=== PATIENT | male | born 1980 | race Caucasian/White ===

== ENCOUNTER 2023-10-05 22:19 | Emergency (ER) | payer BC ==
[2023-10-05 22:51] LABS: BASOPHILS ABSOLUTE AUTO 0.02 K/uL (0.00-0.20); BASOPHILS PERCENT AUTO 0.3 % (0.0-2.0); EOSINOPHILS ABSOLUTE AUTO 0.07 K/uL (0.00-0.50); HEMATOCRIT 42.1 % (39.0-49.0); HEMOGLOBIN 14.8 g/dL (13.1-16.8); LYMPHOCYTES ABSOLUTE AUTO 1.67 K/uL (0.50-3.50); LYMPHOCYTES PERCENT AUTO 23.5 % (10.0-50.0); MEAN CORPUSCULAR HEMOGLOBIN 34.3 pg (28.2-33.3); MEAN CORPUSCULAR HGB CONC 35.2 g/dL (31.7-36.0); MEAN CORPUSCULAR VOLUME 97.7 fL (84.0-98.0); MONOCYTES ABSOLUTE AUTO 0.68 K/uL (0.00-1.00); MONOCYTES PERCENT AUTO 9.6 % (2.0-14.0); NEUTROPHILS ABSOLUTE AUTO 4.67 K/uL (1.40-7.00); NEUTROPHILS PERCENT AUTO 65.6 % (45.0-80.0); PLATELET COUNT,PLT 216 K/uL (150-350); RED BLOOD CELL COUNT 4.31 M/uL (4.33-5.41); RED CELL DISTRIBUTION WIDTH 12.2 % (11.2-14.1); WHITE BLOOD CELL COUNT,WBC 7.1 K/uL (4.0-10.2)
[2023-10-05] MEDS: cloNIDine 0.1 MG Tab PO ONE (23:08)
[2023-10-05 23:22] LABS: ALANINE AMINOTRANSFERASE,ALT 51 U/L (12-78); ALBUMIN 4.2 g/dL (3.4-5.0); ALKALINE PHOSPHATASE 67 IU/L (46-116); ANION GAP 6.2 meq/L (7-15); ASPARTATE AMNIOTRANSFERASE,AST 28 U/L (15-37); BILIRUBIN TOTAL 0.9 mg/dL (0.2-1.0); BLOOD UREA NITROGEN,BUN 23 mg/dL (7-18); CALCIUM 9.9 mg/dL (8.5-10.1); CARBON DIOXIDE,CO2 28.8 mmol/L (21.0-32.0); CHLORIDE,CL 104 mmol/L (98-107); CREATININE 0.97 mg/dL (0.51-1.17); GLUCOSE RANDOM 109 mg/dL (70-99); POTASSIUM,K 3.9 mmol/L (3.5-5.1); SODIUM,NA 139 mmol/L (136-145)
[2023-10-05 23:25] LABS: ESTIMATED GFR 101 mL/min (>=60); PROTHROMBIN TIME 10.3 SEC (9.0-11.1)
== END 2023-10-05 23:40 | disposition home or self-care (01) ==
LOC: LL.ED 22:19
DX: R00.2 Palpitations (principal)
CPT/HCPCS: 36415; 71045; 80053; 84484; 85025; 85610; 93005; 93010; 99284; 99285; A9270-GY

== ENCOUNTER 2023-12-10 13:25 | Emergency (ER) | payer BC ==
[2023-12-10] MEDS ORDERED: Sodium Chloride 0.9% 10 ML Syringe FLUSH PRN (13:31)
[2023-12-10 13:37] LABS: BASOPHILS ABSOLUTE AUTO 0.02 K/uL (0.00-0.20); BASOPHILS PERCENT AUTO 0.3 % (0.0-2.0); EOSINOPHILS ABSOLUTE AUTO 0.08 K/uL (0.00-0.50); EOSINOPHILS PERCENT AUTO 1.2 % (0.0-5.0); HEMATOCRIT 42.4 % (39.0-49.0); HEMOGLOBIN 14.7 g/dL (13.1-16.8); LYMPHOCYTES ABSOLUTE AUTO 1.35 K/uL (0.50-3.50); LYMPHOCYTES PERCENT AUTO 20.3 % (10.0-50.0); MEAN CORPUSCULAR HEMOGLOBIN 34.3 pg (28.2-33.3); MEAN CORPUSCULAR HGB CONC 34.7 g/dL (31.7-36.0); MEAN CORPUSCULAR VOLUME 98.8 fL (84.0-98.0); MONOCYTES ABSOLUTE AUTO 0.59 K/uL (0.00-1.00); MONOCYTES PERCENT AUTO 8.9 % (2.0-14.0); NEUTROPHILS PERCENT AUTO 69.3 % (45.0-80.0); PLATELET COUNT,PLT 240 K/uL (150-350); RED BLOOD CELL COUNT 4.29 M/uL (4.33-5.41); RED CELL DISTRIBUTION WIDTH 12.5 % (11.2-14.1); WHITE BLOOD CELL COUNT,WBC 6.6 K/uL (4.0-10.2)
[2023-12-10 13:47] LABS: ALANINE AMINOTRANSFERASE,ALT 50 U/L (12-78); ALBUMIN 3.6 g/dL (3.4-5.0); ALKALINE PHOSPHATASE 76 IU/L (46-116); ANION GAP 6.8 meq/L (7-15); ASPARTATE AMNIOTRANSFERASE,AST 23 U/L (15-37); BILIRUBIN TOTAL 0.5 mg/dL (0.2-1.0); BLOOD UREA NITROGEN,BUN 15 mg/dL (7-18); CALCIUM 8.5 mg/dL (8.5-10.1); CARBON DIOXIDE,CO2 30.2 mmol/L (21.0-32.0); CHLORIDE,CL 104 mmol/L (98-107); CREATININE 0.99 mg/dL (0.51-1.17); ESTIMATED GFR 98 mL/min (>=60); GLUCOSE RANDOM 108 mg/dL (70-99); MAGNESIUM 1.9 mg/dL (1.8-2.4); POTASSIUM,K 3.9 mmol/L (3.5-5.1); PROTEIN TOTAL,TP 7.4 g/dL (6.4-8.2); SODIUM,NA 141 mmol/L (136-145)
[2023-12-10 13:57] LABS: PROTHROMBIN TIME 10.4 SEC (9.0-11.1)
== END 2023-12-10 15:05 | disposition home or self-care (01) ==
LOC: LL.ED 13:25
DX: R07.89 Other chest pain (principal); K21.9 Gastro-esophageal reflux disease without esophagitis; F41.9 Anxiety disorder, unspecified; I10 Essential (primary) hypertension; Z79.899 Other long term (current) drug therapy
CPT/HCPCS: 36415; 71046; 80053; 83735; 84484; 85025; 85610; 93005; 93010; 99284; 99285

== ENCOUNTER 2024-05-04 14:05 | Emergency (ER) | payer BC ==
[2024-05-04] MEDS ORDERED: Sodium Chloride 0.9% 10 ML Syringe FLUSH PRN (14:18)
[2024-05-04] MEDS: Lactated Ringers 1,000 ML IV ONE (14:40)
[2024-05-04 14:41] LABS: BASOPHILS ABSOLUTE AUTO 0.02 K/uL (0.00-0.20); BASOPHILS PERCENT AUTO 0.2 % (0.0-2.0); EOSINOPHILS ABSOLUTE AUTO 0.04 K/uL (0.00-0.50); EOSINOPHILS PERCENT AUTO 0.5 % (0.0-5.0); HEMATOCRIT 39.8 % (39.0-49.0); LYMPHOCYTES ABSOLUTE AUTO 1.04 K/uL (0.50-3.50); LYMPHOCYTES PERCENT AUTO 12.9 % (10.0-50.0); MEAN CORPUSCULAR HEMOGLOBIN 33.8 pg (28.2-33.3); MEAN CORPUSCULAR HGB CONC 35.2 g/dL (31.7-36.0); MEAN CORPUSCULAR VOLUME 96.1 fL (84.0-98.0); MONOCYTES ABSOLUTE AUTO 0.54 K/uL (0.00-1.00); MONOCYTES PERCENT AUTO 6.7 % (2.0-14.0); NEUTROPHILS ABSOLUTE AUTO 6.43 K/uL (1.40-7.00); NEUTROPHILS PERCENT AUTO 79.7 % (45.0-80.0); PLATELET COUNT,PLT 223 K/uL (150-350); RED BLOOD CELL COUNT 4.14 M/uL (4.33-5.41); RED CELL DISTRIBUTION WIDTH 12.5 % (11.2-14.1); WHITE BLOOD CELL COUNT,WBC 8.1 K/uL (4.0-10.2)
[2024-05-04 15:04] LABS: ALANINE AMINOTRANSFERASE,ALT 28 U/L (12-78); ALBUMIN 3.6 g/dL (3.4-5.0); ALKALINE PHOSPHATASE 80 IU/L (46-116); ANION GAP 5.6 meq/L (7-15); ASPARTATE AMNIOTRANSFERASE,AST 11 U/L (15-37); BILIRUBIN TOTAL 0.8 mg/dL (0.2-1.0); BLOOD UREA NITROGEN,BUN 16 mg/dL (7-18); CALCIUM 9.1 mg/dL (8.5-10.1); CARBON DIOXIDE,CO2 30.4 mmol/L (21.0-32.0); CHLORIDE,CL 104 mmol/L (98-107); CREATININE 0.93 mg/dL (0.51-1.17); EST CRCL DRUG DOSING (CG) 110.21 mL/min; GLUCOSE RANDOM 124 mg/dL (70-99); MAGNESIUM 1.9 mg/dL (1.8-2.4); POTASSIUM,K 4.1 mmol/L (3.5-5.1); PROTEIN TOTAL,TP 7.3 g/dL (6.4-8.2); PROTHROMBIN TIME 10.4 SEC (9.0-11.1); SODIUM,NA 140 mmol/L (136-145)
[2024-05-04 15:22] LABS: ESTIMATED GFR 105 mL/min (>=60)
[2024-05-04] MEDS: Iopamidol 612 MG/ML 100 ML Bottle ONE (15:55)
== END 2024-05-04 16:15 | disposition home or self-care (01) ==
LOC: LL.ED 14:05
DX: R42 Dizziness and giddiness (principal); I10 Essential (primary) hypertension; Z88.1 Allergy status to other antibiotic agents
CPT/HCPCS: 36415; 70460; 80053; 83735; 84484; 85025; 85610; 93005; 93010; 99284; 99285; J7120; Q9967

== ENCOUNTER 2024-06-24 10:18 | Emergency (ER) | payer BC ==
[2024-06-24] MEDS ORDERED: Sodium Chloride 0.9% 10 ML Syringe FLUSH PRN (10:25)
[2024-06-24 10:42] LABS: BASOPHILS ABSOLUTE AUTO 0.01 K/uL (0.00-0.20); BASOPHILS PERCENT AUTO 0.2 % (0.0-2.0); EOSINOPHILS ABSOLUTE AUTO 0.06 K/uL (0.00-0.50); EOSINOPHILS PERCENT AUTO 1.3 % (0.0-5.0); HEMATOCRIT 40.5 % (39.0-49.0); LYMPHOCYTES ABSOLUTE AUTO 1.37 K/uL (0.50-3.50); MEAN CORPUSCULAR HEMOGLOBIN 33.5 pg (28.2-33.3); MEAN CORPUSCULAR HGB CONC 34.6 g/dL (31.7-36.0); MEAN CORPUSCULAR VOLUME 96.9 fL (84.0-98.0); MONOCYTES PERCENT AUTO 10.6 % (2.0-14.0); NEUTROPHILS ABSOLUTE AUTO 2.79 K/uL (1.40-7.00); NEUTROPHILS PERCENT AUTO 58.9 % (45.0-80.0); PLATELET COUNT,PLT 176 K/uL (150-350); RED BLOOD CELL COUNT 4.18 M/uL (4.33-5.41); RED CELL DISTRIBUTION WIDTH 12.6 % (11.2-14.1); WHITE BLOOD CELL COUNT,WBC 4.7 K/uL (4.0-10.2)
[2024-06-24 11:11] LABS: ALBUMIN 3.6 g/dL (3.4-5.0); ANION GAP 10.6 meq/L (7-15); BILIRUBIN TOTAL 1.2 mg/dL (0.2-1.0); C-REACTIVE PROTEIN 0.15 mg/dL (0.05-0.30); CALCIUM 9.4 mg/dL (8.5-10.1); CARBON DIOXIDE,CO2 27.4 mmol/L (21.0-32.0); CREATININE 0.86 mg/dL (0.51-1.17); EST CRCL DRUG DOSING (CG) 119.18 mL/min; POTASSIUM,K 4.4 mmol/L (3.5-5.1); PROTEIN TOTAL,TP 7.1 g/dL (6.4-8.2)
[2024-06-24 12:28] LABS: APPEARANCE,URINE CLEAR; BILIRUBIN,URINE NEGATIVE (NEGATIVE); COLOR,URINE YELLOW; GLUCOSE,URINE NEGATIVE (NEGATIVE); KETONES,URINE NEGATIVE (NEGATIVE); LEUKOCYTE ESTERASE,URINE NEGATIVE (NEGATIVE); NITRITE,URINE NEGATIVE (NEGATIVE); OCCULT BLOOD,URINE NEGATIVE (NEGATIVE); PROTEIN,URINE NEGATIVE (NEGATIVE); UROBILINOGEN,URINE 0.2 E.U./dL (0.2-1.0)
[2024-06-24 12:38] LABS: BACTERIA,URINE NOT SEEN /HPF (NONE TO FEW); RBC,URINE 0-5 /HPF; WBC,URINE 0-5 /HPF
== END 2024-06-24 12:20 | disposition home or self-care (01) ==
LOC: LL.ED 10:18
DX: K92.1 Melena (principal); I10 Essential (primary) hypertension; Z87.891 Personal history of nicotine dependence; Z79.899 Other long term (current) drug therapy; Z88.0 Allergy status to penicillin; Z88.1 Allergy status to other antibiotic agents
CPT/HCPCS: 36415; 74019; 80053; 81001; 83605; 85025; 86140; 99284; 99285

== ENCOUNTER 2024-06-27 10:12 | Day surgery (SDC) | payer BC ==
[~2024-06-27 10:12] MED LIST: Midazolam 1 MG/ML 2 ML SDV ONE; Propofol 200 MG/20 ML SDV ONE
[2024-06-27] MEDS ORDERED: Sodium Chloride 0.9% 10 ML Syringe FLUSH PRN (10:15)
[2024-06-27] MEDS: Lactated Ringers 1,000 ML IV SCH (11:15)
[2024-06-27] MEDS ORDERED: Ketamine 500 mg/10 ML MDV ONE (11:18)
[2024-06-27] MEDS ORDERED: Ketamine 500 mg/10 ML MDV IV ONE (11:19)
[2024-06-27] MEDS ORDERED: Glycopyrrolate 0.2 MG/ML SDV IVPUSH ONE (11:19)
[2024-06-27] MEDS ORDERED: Lidocaine 2% 5 ML SDV ONE (11:19)
== END 2024-06-27 12:45 | disposition home or self-care (01) ==
LOC: LL.SDS 10:12
PROVIDERS: ATTEND Surgery
DX: K64.9 Unspecified hemorrhoids (principal); K29.80 Duodenitis without bleeding; I10 Essential (primary) hypertension; J45.909 Unspecified asthma, uncomplicated; Z79.899 Other long term (current) drug therapy
CPT/HCPCS: 00813; 43239; 45378; J1596; J2250; J2704; J3490; J7120